=== PATIENT | female | born 1940 | race Caucasian/White ===

== ENCOUNTER → 2016-04-18 | Outpatient (CLI) | payer MEDICARE, OTHER ==
--- NOTE | 2016-04-18 16:09 | US ---
EXAM DESCRIPTION: US LOWER EXTREMITY ARTERIES BILATERAL CLINICAL HISTORY: PVD COMPARISON: None. TECHNIQUE: 2D grayscale and color arterial duplex Doppler evaluation of the bilateral lower extremities. FINDINGS: Mild scattered calcified plaque throughout the arterial vasculature is seen. There is biphasic flow from proximal to distal in both lower extremities. No elevated velocities or evidence of arterial occlusion is seen. IMPRESSION: Mild atherosclerotic disease of the bilateral lower extremities. No ultrasound evidence of flow-limiting stenosis or arterial occlusion. Electronically signed by: Caesar Orozco MD 04/18/2016 16:06
== END ==
LOC: US 15:02
PROVIDERS: ATTEND Obstetrics & Gynecology
DX: I73.9 Peripheral vascular disease, unspecified (principal); I70.203 Unspecified atherosclerosis of native arteries of extremities, bilateral legs

== ENCOUNTER → 2016-06-07 | Outpatient (CLI) | payer MEDICARE, OTHER ==
--- NOTE | 2016-06-07 12:37 | RAD ---
EXAM DESCRIPTION: Pelvis CLINICAL HISTORY: PAIN IN LEFT AND RIGHT HIP COMPARISON: March 12, 2011 IMPRESSION: Single AP supine view of the pelvis shows diffuse osteopenia of the osseous structures. No acute fracture, focal bone destruction, or joint dislocation seen. Moderate osteoarthritic changes of the hips are seen. Evaluation of the sacrum is limited by overlying bowel gas. Electronically signed by: Caesar Orozco MD 06/07/2016 12:36 PM COLLAR STAY FUSER TENDER
--- NOTE | 2016-06-07 12:38 | RAD ---
EXAM DESCRIPTION: Knee,Left Complete CLINICAL HISTORY: PAIN IN LEFT KNEE COMPARISON: None. IMPRESSION: 3 standing views of the left knee show severe narrowing of the lateral tibiofemoral compartment with sclerotic changes involving the weightbearing articular surface. This is consistent with severe advanced atherosclerotic disease. There is mild valgus deformity of the knee. Mild joint line osteophytes of the medial tibiofemoral compartment is seen. Large joint line osteophytes and mild joint space narrowing of the patellofemoral compartment is seen consistent with severe osteoarthritic changes. Soft tissues are unremarkable. No obvious acute fracture, focal bone destruction, or joint dislocation is seen. Electronically signed by: Ceasar Orozco MD 06/07/2016 12:37 PM FURNITURE DESIGNER
--- NOTE | 2016-06-07 12:40 | RAD ---
EXAM DESCRIPTION: Knee,Right Complete CLINICAL HISTORY: PAIN IN RIGHT KNEE COMPARISON: None. IMPRESSION: 3 standing views of the right knee show moderate to severe narrowing of the lateral tibiofemoral compartment with mild joint line osteophytes and sclerotic changes of the weightbearing articular surface consistent with severe osteoarthritic changes. Mild joint line osteophytes of the medial tibiofemoral compartment are seen. There is mild valgus deformity. Mild osteophytes of the patellofemoral compartment are seen consistent with mild osteoarthritic changes. There is a small suprapatellar joint effusion. No acute fracture or dislocation is identified. Electronically signed by: Caesar Orozco MD 06/07/2016 12:39 PM CSR TECHNICIAN
== END | disposition home or self-care (01) ==
LOC: RAD 02:06
PROVIDERS: ATTEND Orthopaedic Surgery
DX: M25.562 Pain in left knee (principal); M25.552 Pain in left hip

== ENCOUNTER → 2016-07-16 | Outpatient (CLI) | payer MEDICARE, OTHER ==
--- NOTE | 2016-07-17 09:18 | MAM ---
History: Well woman exam. Date of exam: 07/16/2016 Services provided: Bilateral full field digital screening mammography. CAD, the images were reviewed with R2 computer aided detection. FINDINGS: Glandular tissue is scattered glandular contour with increased mammographic density. Study is compared with 2012 exam. Stable medial right breast nodular density. No dominant mass, architectural distortion or clustered microcalcification. IMPRESSION: Benign exam Recommendation: Routine annual mammography BIRAD CATEGORY: 2 BENIGN Electronically signed by: Jenelle Beaver MD 07/17/2016 9:17 AM CDT
== END | disposition home or self-care (01) ==
LOC: MAMMO 13:52
PROVIDERS: ATTEND Obstetrics & Gynecology
DX: Z12.31 Encounter for screening mammogram for malignant neoplasm of breast (principal)

== ENCOUNTER → 2016-08-13 | Outpatient (CLI) | payer MEDICARE, OTHER | END | disposition home or self-care (01) | LOC: LAB.O 07:06 | PROVIDERS: ATTEND Internal Medicine Nephrology | DX: N18.4 Chronic kidney disease, stage 4 (severe) (principal) ==

== ENCOUNTER → 2016-12-13 | Outpatient (CLI) | payer MEDICARE, OTHER | LOC: LAB.O 14:12 | PROVIDERS: ATTEND Internal Medicine Nephrology | DX: N18.4 Chronic kidney disease, stage 4 (severe) (principal) ==

== ENCOUNTER → 2017-01-14 | Outpatient (CLI) | payer MEDICARE, OTHER | END | disposition home or self-care (01) | LOC: LAB.O 12:55 | PROVIDERS: ATTEND Internal Medicine Nephrology | DX: N18.4 Chronic kidney disease, stage 4 (severe) (principal) ==

== ENCOUNTER → 2017-03-22 | Outpatient (CLI) | payer MEDICARE, OTHER ==
--- NOTE | 2017-03-23 06:02 | RAD ---
Procedure: XR CHEST 2 VIEWS Exam Date: 03/22/2017 Ordering Provider: SALLY MENDOZA MD Clinical Indication: ENCOUNTER FOR OTHER PREPROCEDURAL EXAMINATION Comparison: 04/15/2014 Findings: Cardiomediastinal silhouette: Borderline cardiomegaly. Pulmonary vasculature : Unremarkable Aortic contour: Aortic calcification and tortuosity Focal lung consolidation: No focal lung consolidation. Pleural effusion: None Pneumothorax: None Bones and soft tissues: Nonacute Impression: 1. No acute abnormalities in the chest. Electronically signed by: Nate Garcia MD 03/23/2017 6:00 AM HARNESS RACING HANDICAPPER
== END ==
LOC: LAB.O 09:54
PROVIDERS: ATTEND Orthopaedic Surgery
DX: Z01.818 Encounter for other preprocedural examination (principal)

== ENCOUNTER 2017-04-17 05:47 | Inpatient (IN) | payer MEDICARE, OTHER ==
--- NOTE | 2017-04-11 13:02 | HP ---
CHIEF COMPLAINT: Right knee pain. HISTORY OF PRESENT ILLNESS: Nathalia is a 69-year-old female with a history of right knee pain that has been getting progressively worse over the course of the past several years. She has had conservative measures, however, has failed to gain relief. Because of her ongoing pain and failure of conservative measures, she has requested operative intervention. After discussing the risks , benefits and alternatives to operative intervention, the patient has given informed consent. PAST SURGICAL HISTORY: 1. Rotator cuff repair. 2. Laparotomy. 3. Cholecystectomy. 4. Oophorectomy. MEDICATIONS: 1. Atorvastatin. 2. Calcium. 3. Vitamins. 4. Glipizide. ALLERGIES: NO KNOWN DRUG ALLERGIES. CODE STATUS: DNR. IMMUNIZATIONS: Up to date. SOCIAL HISTORY: The patient does not drink, smoke or use any illicit drugs. FAMILY HISTORY: None pertinent to today's complaint. REVIEW OF SYSTEMS: Negative except as indicated in the History of Present Illness. PHYSICAL EXAMINATION: VITAL SIGNS: Blood pressure 154/81. Pulse 63. Height 4'11". Weight 141. MENTAL STATUS: The patient is awake, alert, and is able to give a good history and participate in the physical. The patient is oriented to person, place and time. SKIN: Normal tone and turgor. HEENT: Normocephalic, atraumatic. Pupils equal, round and reactive. Mucosal membranes are moist. NECK: Normal range of motion. No thyromegaly, no lymphadenopathy. CHEST: Normal respiratory excursion. CARDIAC: Regular rate and rhythm. No murmurs, rubs or gallops. MUSCULOSKELETAL: Bilateral upper extremities show full active range of motion without significant pain. She has intact sensation with no crepitus, no deformities and no malalignment. Strength is 5/5. They are warm and well perfused. The left lower extremity shows full range of motion of the hip. She has a valgus deformity to the knee, but no varus laxity. She has a little bit of opening with varus stress. There is no anterior or posterior laxity. She does have crepitus throughout the range of motion, but strength remains at 5/5. The right lower extremity shows no significant pain with range of motion of the hip. She is very tender in the knee with crepitus throughout her range of motion. She has no anterior/posterior laxity, but she does have a little bit of lateral laxity with varus stress. Sensation is intact. Strength is 5/5. She is very tender to mobilization of the patellofemoral joint. IMAGING: X-rays show severe arthritis on both knees. ASSESSMENT: 1. Arthritis. PLAN: The plan at this point is for total knee arthroplasty. We have discussed the risks, benefits, and alternatives to that and the patient has given informed consent. [facility][id number] [facility]
[2017-04-17] MEDS ORDERED: LACTATED RINGERS 1,000 ML ONE ×2 (05:48→05:58)
[2017-04-17] MEDS ORDERED: SODIUM CHLORIDE 0.9% 250ML 250 ML ONE ×2 (05:48→15:57)
[2017-04-17] MEDS ORDERED: VANCOMYCIN HCL INJ 1,000 MG VIAL IVPB ONE ×2 (05:49→15:58)
[2017-04-17] MEDS ORDERED: SODIUM CHL 0.9% 50ML MIN-BAG+ 50 ML IVPB ONE ×3 (05:49→19:55)
[2017-04-17] MEDS ORDERED: ceFAZolin SODIUM 1 GM VIAL ONE ×4 (05:50→19:56)
[2017-04-17] MEDS ORDERED: TRANEXAMIC ACID 1,000 MG/10 ML VIAL ONE ×2 (05:54)
[2017-04-17] MEDS ORDERED: SODIUM CHLORIDE 0.9% 100ML 100 ML IVPB ONE (05:54)
[2017-04-17] MEDS ORDERED: MORPHINE SULFATE *EPIDURAL* 0.5 MG/ML VIAL ONE (05:57)
[2017-04-17] MEDS ORDERED: fentaNYL CITRATE INJ 50 MCG/ML AMP ONE (05:57)
[2017-04-17] MEDS ORDERED: MIDAZOLAM INJ 2 MG/2 ML VIAL ONE (05:58)
[2017-04-17] MEDS ORDERED: LIDOCAINE 2 % GEL 5 ML TUBE TOP ONE (05:58)
[2017-04-17] MEDS: BUPIVACAINE 0.25% W/EPI 50 ML VIAL INJ ONE ×2 (07:54→08:44)
[2017-04-17] MEDS: VANCOMYCIN HCL INJ 1,000 MG VIAL IVPB ONE ×2 (07:55→08:40)
[2017-04-17] MEDS: ceFAZolin SODIUM 1 GM VIAL ONE ×2 (07:55→08:40)
[2017-04-17] MEDS ORDERED: ZOLPIDEM TARTRATE 5 MG TAB PO PRN (08:57)
[2017-04-17] MEDS ORDERED: NALOXONE HCL INJ 0.4 MG/ML VIAL IV PRN (08:57)
[2017-04-17] MEDS ORDERED: TRANEXAMIC ACID INJ 1,000 MG in SODIUM CHLORIDE 0.9% 100ML 100 ML IVPB ONE (08:57)
[2017-04-17] MEDS ORDERED: MORPHINE SULFATE INJ 10 MG/ML VIAL IV PRN (08:57)
[2017-04-17] MEDS ORDERED: MORPHINE SULFATE INJ 10 MG/ML VIAL IM PRN (08:57)
[2017-04-17] MEDS ORDERED: PROMETHAZINE HCL INJ 25 MG in SODIUM CHLORIDE 0.9% 50ML 50 ML IVPB PRN (08:57)
[2017-04-17] MEDS ORDERED: MAGNESIUM HYDROXIDE 30 ML UD PO PRN (08:57)
[2017-04-17] MEDS ORDERED: ALUMINUM & MAGNESIUM HYDROXIDE 30 ML UD PO PRN (08:57)
[2017-04-17] MEDS ORDERED: DEX 5% W/NACL 0.45% 1000ML 1,000 ML IVS PRN (08:57)
[2017-04-17] MEDS ORDERED: BISACODYL SUPPOSITORY 10 MG PR PRN (08:57)
[2017-04-17] MEDS ORDERED: BENZOCAINE-MENTH LOZ (CEPACOL) 1 EA LOZ MT PRN (08:57)
[2017-04-17] MEDS ORDERED: ACETAMINOPHEN 500 MG TAB PO PRN (08:57)
[2017-04-17] MEDS ORDERED: ACETAMINOPHEN 325 MG TAB PO PRN (08:57)
[2017-04-17] MEDS ORDERED: PROMETHAZINE HCL INJ 12.5 MG in SODIUM CHLORIDE 0.9% 50ML 50 ML IVPB PRN (08:57)
[2017-04-17] MEDS ORDERED: traMADol HCL 50 MG TAB PO PRN (08:57)
[2017-04-17] MEDS ORDERED: MORPHINE PCA 1 MG/ML 100ML 1 BAG in PREMIX BAG 1 BAG IVPB SCH (09:00)
[2017-04-17] MEDS ORDERED: MORPHINE PCA 1 MG/ML 100 ML BAG IVPB ONE (09:05)
[2017-04-17] MEDS ORDERED: SODIUM CHLORIDE 0.45% 1000ML 1,000 ML IVS PRN (09:52)
[2017-04-17] MEDS ORDERED: NEOSTIGMINE METHYLSULFATE 1 MG/ML ML IV ONE (10:00)
[2017-04-17] MEDS ORDERED: ATROPINE SULFATE INJ (MDV) 0.4 MG/ML 20ML VIAL IV ONE (10:00)
[2017-04-17] MEDS ORDERED: METOCLOPRAMIDE HCL INJ 10 MG/2 ML VIAL IV ONE (10:00)
[2017-04-17] MEDS ORDERED: LIDOCAINE 1% 10 ML VIAL INJ ONE (10:00)
[2017-04-17] MEDS ORDERED: PROPOFOL 200 MG/20 ML VIAL IV ONE (10:00)
[2017-04-17] MEDS ORDERED: DEXAMETHASONE INJ 10 MG/ML VIAL IV ONE (10:00)
[2017-04-17] MEDS ORDERED: ONDANSETRON INJ 4 MG/2 ML VIAL ONE (10:04)
[2017-04-17] MEDS ORDERED: METOCLOPRAMIDE HCL INJ 10 MG/2 ML VIAL ONE (10:04)
[2017-04-17] MEDS: IV SET AND CAP CHANGE INJ INJ SCH (11:30)
[2017-04-17] MEDS: ONDANSETRON INJ 4 MG/2 ML VIAL IV PRN ×2 (12:19→18:31)
--- NOTE | 2017-04-17 13:19 | RAD ---
EXAM DESCRIPTION: Knee,Right 2 or More Views CLINICAL HISTORY: TKA COMPARISON: June 07, 2016 IMPRESSION: 2 views of the right knee show interval postsurgical changes from total knee arthroplasty with cement fixation of the tibial and femoral components. Small amount of air in the suprapatellar bursa is seen related to recent surgery. No complicating features are identified. Electronically signed by: Caesar Orozco MD 04/17/2017 1:18 PM [facility]
--- NOTE | 2017-04-17 13:32 | CONS ---
SUPERVISING PHYSICIAN: Ken Rogers MD DATE OF CONSULTATION: 04/17/17 REASON FOR CONSULTATION: Medical management. HISTORY OF PRESENT ILLNESS: This is a 76-year-old female who underwent elective right total knee arthroplasty today. She has had right knee pain which has progressively gotten worse over the past year or so and has failed conservative measures. There are no reported intraoperative complications. The patient was brought the Medical/Surgical Unit postoperatively where she is still drowsy from anesthesia, but awakens and answers appropriately. So far, vital signs are acceptable. Oxygen saturations are acceptable as well. When she awakens, she does not complain of any significant knee pain at this time. PAST MEDICAL HISTORY: 1. Type 2 diabetes mellitus. 2. Chronic kidney disease. 3. Uterine cancer. 4. Hyperlipidemia. 5. Cerebrovascular accident. 6. MRSA infections on her face in the past. PAST SURGICAL HISTORY: 1. Appendectomy. 2. Cholecystectomy. 3. Hysterectomy. 4. Left rotator cuff surgery. MEDICATIONS: 1. Atorvastatin 10 mg q.h.s. 2. Calcium plus D 1 tab b.i.d. 3. Vitamin D3 1000 units b.i.d. 4. Clobetasol propionate 0.05% ointment every other day. 5. Glipizide 2.5 mg before meals b.i.d. 6. Miglitol 75 mg p.o. daily. ALLERGIES: NO KNOWN DRUG ALLERGIES. FAMILY HISTORY: Noncontributory. SOCIAL HISTORY: The patient is . She is a nonsmoker, nondistended, no illicit drugs. PRIMARY CARE PHYSICIAN: Reji Dye MD REVIEW OF SYSTEMS: Unable to be fully performed due to the fact the patient is still a bit sedated. PHYSICAL EXAMINATION: VITAL SIGNS: Blood pressure 159/77. Heart rate 94. Respiratory rate 18. Temperature 97.8. Oxygen saturation 97%. GENERAL: Ms. Snyder is a 76-year-old female who is in no active distress currently. HEENT: Normocephalic, atraumatic. Pupils are equal and reactive. No nasal drainage. Throat with slightly dry buccal mucosa. NECK: Supple. Midline trachea. No jugular venous distention. CHEST: Symmetrical with equal rise and fall of the chest with inspiration and expiration. Lung sounds are clear to auscultation bilaterally. CARDIOVASCULAR: Regular rate and rhythm. Normal S1, S2. ABDOMEN: Soft, obese. Positive bowel sounds. No tenderness to palpation. GENITOURINARY: Deferred. EXTREMITIES: Lower extremities with a noted brace on the right lower extremity. No significant edema. Peripheral pulses are 2+. Capillary refill less than 2 seconds. NEUROLOGIC: The patient is drowsy, but awakens and follows commands. Moves all extremities. There are no focal deficits. LABORATORY: Labs and films were done preoperatively in March and she is noted to have some chronic kidney disease on that. ASSESSMENT: 1. Right knee osteoarthritis with failed conservative measures status post right total knee arthroplasty. 2. Type 2 diabetes mellitus. 3. Chronic kidney disease. 4. Hypertension. PLAN: 1. At this time, we are going to utilize postoperative orders by Dr. Shultz in regard to pain control as well as physical therapy for her right knee surgery recovery. 2. I am going to resume her home medications. This will include her diabetes medications. If we start to notice that her glucoses become uncontrolled, we can start utilizing a sliding scale. 3. I will recheck her labs in the morning since the other ones were done about a month ago. We will ensure that her hemoglobin is stable as well as check creatinine to ensure it is around her baseline. 4. She is not really on any antihypertensive medications. I will monitor this and if we need to add something for her blood, we can certainly do that. 5. DVT prophylaxis with Lovenox has already been ordered. #[id number] [facility]
[2017-04-17] MEDS: glipiZIDE EXTENDED REL (XL) 2.5 MG TAB PO SCH (16:27)
[2017-04-17] MEDS: ceFAZolin SODIUM 1 GM in SODIUM CHL 0.9% 50ML MIN-BAG+ 50 ML IVPB SCH ×2 (16:27→23:48)
[2017-04-17] MEDS: CELECOXIB 100 MG CAP PO SCH (16:27)
[2017-04-17] MEDS: VANCOMYCIN HCL INJ 1,000 MG in SODIUM CHLORIDE 0.9% 250ML 250 ML IVPB SCH (18:05)
[2017-04-17] MEDS ORDERED: GLUCAGON INJ 1 MG VIAL SUBCU PRN (18:52)
[2017-04-17] MEDS ORDERED: DEXTROSE 50% 25 GM/50 ML SYG IV PRN (18:52)
[2017-04-17] MEDS: ATORVASTATIN 10 MG TAB PO SCH ×2 (20:03→22:05)
[2017-04-17] MEDS: CHOLECALCIFEROL 2,000 IU TAB PO SCH ×2 (20:03→22:06)
[2017-04-17] MEDS: DOCUSATE CALCIUM 240 MG CAP PO SCH ×2 (20:03→22:06)
[2017-04-17] MEDS: CLOBETASOL PROPIONATE 0.05% EX SCH ×2 (20:03→20:42)
[2017-04-17] MEDS: CALCIUM CARBONATE-VITAMIN D 500 MG TAB PO SCH ×2 (20:03→22:05)
[2017-04-17] MEDS ORDERED: PROMETHAZINE HCL INJ 25 MG/ML VIAL ONE (20:15)
[2017-04-17] MEDS ORDERED: SODIUM CHLORIDE 0.9% 50ML 50 ML ONE (20:15)
[2017-04-17] MEDS ORDERED: CALCIUM CITRATE VITAMIN D PO SCH (21:00)
[2017-04-17] MEDS ORDERED: [UNRECOGNIZED DRUG - OTHER] PO SCH (21:00)
[2017-04-17] MEDS: ENOXAPARIN SODIUM 30 MG/0.3 ML SYG SUBCU SCH (21:16)
[2017-04-17] MEDS: INSULIN LISPRO 100 UNITS/ML PEN SUBCU SCH (23:08)
[2017-04-18] MEDS ORDERED: VANCOMYCIN HCL INJ 1,000 MG VIAL IVPB ONE (05:19)
[2017-04-18] MEDS ORDERED: SODIUM CHLORIDE 0.9% 250ML 250 ML ONE (05:19)
[2017-04-18] MEDS: VANCOMYCIN HCL INJ 1,000 MG in SODIUM CHLORIDE 0.9% 250ML 250 ML IVPB SCH (05:32)
[2017-04-18] MEDS: glipiZIDE EXTENDED REL (XL) 2.5 MG TAB PO SCH ×2 (06:45→17:36)
[2017-04-18] MEDS: MIGLITOL PO SCH (06:45)
[2017-04-18] MEDS: INSULIN LISPRO 100 UNITS/ML PEN SUBCU SCH ×4 (07:26→21:16)
[2017-04-18] MEDS: CELECOXIB 100 MG CAP PO SCH ×2 (08:11→17:35)
--- NOTE | 2017-04-18 08:27 | PN ---
DATE: 04/17/17 POSTOPERATIVE CHECK SUBJECTIVE: At this point, Ms. Snyder has a little bit of pain in the hip, but otherwise has no complaints. Pain is well controlled. OBJECTIVE: Afebrile. Vital signs stable. Dressing is clean, dry and intact. ASSESSMENT: Status post total knee arthroplasty. PLAN: She will begin her CPM and start weight-bearing as tolerated tomorrow. [facility][id number] [facility]
--- NOTE | 2017-04-18 08:43 | OP ---
DATE OF PROCEDURE: 04/17/17 PREOPERATIVE DIAGNOSIS: 1. Osteoarthritis of the right knee. POSTOPERATIVE DIAGNOSIS: 1. Osteoarthritis of the right knee. PROCEDURE: 1. Right total knee arthroplasty. SURGEON: Kemar Shultz MD. DERRICK BUILDER: Enrique Vyas CST, SA-C. ANESTHESIA: General. COMPLICATIONS: None. FINDINGS: Severe arthritis with valgus deformity. INDICATION: Ms. Snyder has a history of severe pain in the knee for which she has undergone conservative measures. Unfortunately, she has failed to gain relief. Because of the failure of relief, she has requested operative intervention. After discussing the risks, benefits and alternatives to that, the patient has given informed consent for total knee arthroplasty. PROCEDURE: The patient was brought to the Operating Room and placed in supine position. General anesthesia was induced and the patient's leg was sterilely prepped and draped. Following prepping and draping, the distal femur was exposed and using an intramedullary guide, the distal femoral cut was made. The appropriate sized cutting block was measured, pinned into place, and the anterior, posterior, and chamfer cuts were made. The ACL was transected and the tibia was subluxed. Both the medial and lateral menisci were removed. An intramedullary guide was used to make the proximal tibial cut. The appropriate sized base plate was placed and a trial polyethylene was placed. The trial femur was placed, the knee was reduced, and the knee was taken through a range of motion. The knee was stable in anterior, posterior, varus and valgus stress. The patella tracked anatomically without evidence of subluxation or dislocation. After trialing, the trial components were removed and the bony surfaces were thoroughly irrigated with saline. Following irrigation, the surfaces were dried and the final components were cemented into place. The excess cement was removed and the remaining cement was allowed to cure. The knee was again taken through a range of motion to confirm stability. The wound was then irrigated with saline and closure was performed using PDS to approximate the arthrotomy followed by closure of the subcutaneous tissues with a combination of running and interrupted Monocryl sutures. Sterile dressing was placed. The patient was awoken from anesthesia and taken to Recovery. POSTOPERATIVE INSTRUCTIONS: The patient will be weight-bearing as tolerated on postoperative day 1. COMPONENTS: vocaltap Triathlon knee, size 2 femur, size 2 tibia, 11 mm insert. #[id number] [facility]
[2017-04-18] MEDS ORDERED: SODIUM CHL 0.9% 50ML MIN-BAG+ 50 ML IVPB ONE (09:14)
[2017-04-18] MEDS ORDERED: ceFAZolin SODIUM 1 GM VIAL ONE (09:15)
[2017-04-18] MEDS: ceFAZolin SODIUM 1 GM in SODIUM CHL 0.9% 50ML MIN-BAG+ 50 ML IVPB SCH (09:30)
[2017-04-18] MEDS: ENOXAPARIN SODIUM 30 MG/0.3 ML SYG SUBCU SCH ×2 (09:31→21:17)
[2017-04-18] MEDS: MAGNESIUM OXIDE 400 MG TAB PO SCH (09:31)
[2017-04-18] MEDS: CALCIUM CARBONATE-VITAMIN D 500 MG TAB PO SCH ×2 (09:31→20:49)
--- NOTE | 2017-04-18 19:08 | PCM.CORE ---
Physician DVT/VTE - Nurse DVT Assessment & Total Each Risk Factor Represents 3 Points: Age over 75 years Each Risk Factor Represents 1 Point: Hx Major Surgery <1month Each Risk Factor is 1 Point: Obesity (BMI >25) DVT Assessment Score: 5 - 5 or more Very High Risk Treatments: Early Ambulation *, Sequential Compression Device Pharmacological: Enoxaparin 30mg SQ BID
[2017-04-18] MEDS: CHOLECALCIFEROL 2,000 IU TAB PO SCH (20:48)
[2017-04-18] MEDS: DOCUSATE CALCIUM 240 MG CAP PO SCH (20:49)
[2017-04-18] MEDS: ATORVASTATIN 10 MG TAB PO SCH (20:49)
--- NOTE | 2017-04-18 22:05 | PN ---
DATE: 04/18/17 SUPERVISING PHYSICIAN: Ken Rogers M.D. SUBJECTIVE: The patient is doing well. She has been utilizing her CPM and she has been up with Physical Therapy. She has had good pain control. She has had no nausea or vomiting. OBJECTIVE: VITAL SIGNS: Temperature 98.2, pulse 74, blood pressure 136/72, respirations 18, satting 94% on nasal cannula at 3 liters at rest. I's and O's show a positive balance of 200 with 600 in, 400 out. Weight is 66.6 kg. CHEST : Lungs are clear to auscultation, just slightly diminished towards the bases. HEART: Regular rate and rhythm. ABDOMEN: Soft, non-tender. Positive bowel sounds. EXTREMITIES: Right knee has a bulky dressing in place, Ronnie bandage. Distally pulses are strong. Capillary refill is brisk. NEUROLOGIC: She is alert and oriented times three. LABORATORY: Postoperative H&H shows hemoglobin 12.6, hematocrit 38.4. Chemistries show normal electrolytes. BUN 39, creatinine 2.0 which is her baseline creatinine level. Blood sugars have been between 79 and 234. MICROBIOLOGY: There is no growth of MRSA after 24 hours on the MRSA plate. RADIOLOGY: There are no additional radiographic studies. ASSESSMENT: 1. Postoperative day 1 for a total right knee arthroplasty having failed to respond to conservative outpatient treatment measures for right knee osteoarthritis, surgery performed by Dr. Kemar Shultz. 2. Type 2 diabetes mellitus poorly controlled. 3. Chronic kidney disease at baseline creatinine levels. 4. Hypertension. PLAN: Will continue to follow the patient as she progressed through her physical therapy efforts. Will monitor her blood sugars as well as her blood pressure and adjust accordingly. She has shown stable creatinine based off previous labs. We will not repeat laboratory studies in the morning as well as hemoglobin and hematocrit are stable. So far her blood pressure has been fairly well controlled. Again, will continue to monitor this and treat appropriately. She will continue on DVT prophylaxis. Will anticipate discharge in the next 24 to 48 hours with discharge planning still in place with question of either doing Swing Bed versus going to [facility] to continue rehabilitation. Until discharge, will continue to monitor and treat appropriately. #[id number] [facility]
[2017-04-19] MEDS: CYCLOBENZAPRINE HCL 10 MG TAB PO PRN (04:39)
[2017-04-19] MEDS: HYDROcodone 5MG/APAP 325MG 1 EA TAB PO PRN ×3 (04:39→15:03)
[2017-04-19] MEDS: MIGLITOL PO SCH (06:55)
[2017-04-19] MEDS: glipiZIDE EXTENDED REL (XL) 2.5 MG TAB PO SCH ×2 (06:55→16:39)
[2017-04-19] MEDS: INSULIN LISPRO 100 UNITS/ML PEN SUBCU SCH ×4 (07:43→21:09)
[2017-04-19] MEDS: CELECOXIB 100 MG CAP PO SCH ×2 (08:04→16:40)
[2017-04-19] MEDS: ONDANSETRON INJ 4 MG/2 ML VIAL IV PRN (08:16)
--- NOTE | 2017-04-19 08:50 | PN ---
DATE: 04/18/17 SUBJECTIVE: Ms. Snyder is doing well other than a little bit of nausea. OBJECTIVE: Afebrile. Vital signs stable. Dressing is clean, dry and intact. ASSESSMENT: Status post total knee arthroplasty. PLAN: She will continue with her CPM. We will begin weight-bearing as tolerated today. #[id number] [facility]
--- NOTE | 2017-04-19 08:54 | PN ---
DATE: 04/19/17 SUBJECTIVE: Ms. Snyder is doing well. OBJECTIVE: Afebrile. Vital signs stable. Wound is clean. There are no signs or symptoms of infection. ASSESSMENT: Status post total knee arthroplasty. PLAN: She will continue with weight-bearing as tolerated. She will continue to utilize the CPM as well. #[id number] [facility]
[2017-04-19] MEDS: ENOXAPARIN SODIUM 30 MG/0.3 ML SYG SUBCU SCH ×2 (09:05→21:09)
[2017-04-19] MEDS: MAGNESIUM OXIDE 400 MG TAB PO SCH (09:05)
[2017-04-19] MEDS: CALCIUM CARBONATE-VITAMIN D 500 MG TAB PO SCH ×2 (09:05→21:08)
[2017-04-19] MEDS: SODIUM CHLORIDE 0.9% (FLUSH) 10 ML SYG IV SCH ×2 (09:06→21:09)
[2017-04-19] MEDS ORDERED: METOCLOPRAMIDE HCL INJ 10 MG/2 ML VIAL IV ONE (13:12)
[2017-04-19] MEDS ORDERED: PANTOPRAZOLE INJECTION 40 MG in SODIUM CHLORIDE 0.9% 100ML 100 ML IVPB ONE (13:12)
[2017-04-19] MEDS ORDERED: SODIUM CHL 0.9% 100ML MINI-BAG 100 ML IVPB ONE (13:18)
[2017-04-19] MEDS ORDERED: PANTOPRAZOLE SODIUM IV 40 MG VIAL ONE (13:18)
[2017-04-19] MEDS: POLYETHYLENE GLYCOL 3350 17 GM PCKT PO SCH (13:26)
[2017-04-19] MEDS: SODIUM CHLORIDE 0.9% (FLUSH) 10 ML SYG IV PRN (13:28)
[2017-04-19] MEDS: METOCLOPRAMIDE HCL 5 MG TAB PO SCH ×2 (16:40→21:08)
[2017-04-19] MEDS: CHOLECALCIFEROL 2,000 IU TAB PO SCH (21:08)
[2017-04-19] MEDS: DOCUSATE CALCIUM 240 MG CAP PO SCH (21:08)
[2017-04-19] MEDS: ATORVASTATIN 10 MG TAB PO SCH (21:08)
[2017-04-19] MEDS: CLOBETASOL PROPIONATE 0.05% EX SCH (21:09)
[2017-04-20] MEDS: HYDROcodone 5MG/APAP 325MG 1 EA TAB PO PRN ×3 (04:22→21:10)
[2017-04-20] MEDS: METOCLOPRAMIDE HCL 5 MG TAB PO SCH ×4 (06:38→21:11)
[2017-04-20] MEDS: glipiZIDE EXTENDED REL (XL) 2.5 MG TAB PO SCH ×2 (06:38→16:04)
[2017-04-20] MEDS: MIGLITOL PO SCH (06:39)
[2017-04-20] MEDS: INSULIN LISPRO 100 UNITS/ML PEN SUBCU SCH ×4 (08:16→21:11)
[2017-04-20] MEDS: CELECOXIB 100 MG CAP PO SCH ×3 (08:22→16:04)
[2017-04-20] MEDS: ONDANSETRON INJ 4 MG/2 ML VIAL IV PRN (09:36)
[2017-04-20] MEDS: MAGNESIUM OXIDE 400 MG TAB PO SCH (09:41)
[2017-04-20] MEDS: CALCIUM CARBONATE-VITAMIN D 500 MG TAB PO SCH ×2 (09:41→21:10)
[2017-04-20] MEDS: IV SET AND CAP CHANGE INJ INJ SCH (09:42)
[2017-04-20] MEDS: POLYETHYLENE GLYCOL 3350 17 GM PCKT PO SCH (09:42)
[2017-04-20] MEDS: SODIUM CHLORIDE 0.9% (FLUSH) 10 ML SYG IV SCH ×2 (09:42→21:11)
[2017-04-20] MEDS: ENOXAPARIN SODIUM 30 MG/0.3 ML SYG SUBCU SCH ×2 (09:43→21:11)
--- NOTE | 2017-04-20 10:52 | PN ---
DATE: 04/19/17 SUPERVISING PHYSICIAN: Ken Rogers M.D. SUBJECTIVE: The patient is doing pretty well with her physical therapy. She has had some issues with nausea and some constipation. I discussed with her possibly she has a little gastroparesis going on from her poorly controlled diabetes and will try some Reglan a.c., h.s. in efforts to facilitate her dietary supplements and prevent any further nausea and help with assisting and continuing physical therapy. OBJECTIVE: VITAL SIGNS: She remains afebrile, T-max temperature 98.2, pulse 82, blood pressure 120/70, respirations 18, saturation 99% on nasal cannula at 2 liters. I's and O's show a negative balance of 400 with 900 in, 1300 out. She has had no bowel movements as of today. Weight is 66.6 kg. CHEST: Lungs are clear to auscultation. HEART: Regular rate and rhythm. ABDOMEN: Obese, soft, non-tender. Positive bowel sounds. EXTREMITIES: No cyanosis, clubbing, or edema. Right knee has a dressing in place that is clean and dry. There are no signs of infection. Distally pulses are strong. Capillary refill is brisk. NEUROLOGIC: She is alert and oriented times three. LABORATORY: No additional laboratory other than blood sugars which have been running from 79 to 168. RADIOLOGY: There are no additional radiographic studies. ASSESSMENT: 1. Postoperative day #2 for a total right knee arthroplasty having failed to respond to conservative outpatient treatment measures for right knee osteoarthritis, surgery performed by Dr. Kemar Shultz. 2. Type 2 diabetes mellitus poorly controlled. 3. Gastroparesis likely sedimentation to poorly controlled diabetes. 4. Nausea and vomiting associated with some gastroparesis. 5. Chronic kidney disease at baseline creatinine levels. 6. Hypertension. PLAN: Will continue to follow her as to continues to progress her physical therapy efforts. Her blood sugars are still controlled with sliding scale. She has again been having the nausea and is refusing to eat a lot. I have encouraged her to have a good oral intake and will discuss utilizing some Reglan in efforts to prevent any further nausea with close monitoring. Will anticipate discharge either tomorrow or Saturday with continued physical therapy through [facility]. Until discharge, we will continue to monitor closely and treat appropriately. [facility][id number] [facility]
[2017-04-20] MEDS: BISACODYL SUPPOSITORY 10 MG PR ONE ×2 (17:55→18:08)
--- NOTE | 2017-04-20 18:46 | PN ---
DATE: 04/20/17 SUPERVISING PHYSICIAN: Ken Rogers M.D. SUBJECTIVE: The patient is lying in the hospital bed. Complains of nausea but no vomiting. She also complains of constipation. Denies any shortness of breath, chest pain, cough or wheezing. OBJECTIVE: VITAL SIGNS: She is afebrile, heart rate 89. It has been as high as 109. Blood pressure 123/76, respiratory rate 18, O2 sat is 97% on 2 liters nasal cannula. RESPIRATORY: Essentially clear to auscultation bilaterally. CARDIAC: Regular rate and rhythm. ABDOMEN: Soft, nondistended, non-tender. Bowel sounds are positive. EXTREMITIES: Right knee has a dressing in place that is clean and dry. There is some slight edema to the right knee. Her bilateral pedal pulses are +2. NEUROLOGIC: She is awake, alert and oriented times three. LABORATORY: There are no labs or films to report at this time. ASSESSMENT: 1. Postoperative day #2 for a total right knee arthroplasty having failed to respond to conservative outpatient treatment for right knee osteoarthritis, surgery performed by Dr. Kemar Shultz, orthopedic surgeon. 2. Diabetes mellitus type 2 poorly controlled. 3. Gastroparesis most likely sedimentation to poorly controlled diabetes. 4. Nausea most likely associated with gastroparesis. 5. Chronic kidney disease at baseline creatinine levels. 6. Hypertension. PLAN: We will continue present supportive care. It has been reported that her oxygen saturations at rest will sometimes drop to the mid 80s and the reports that she does have sleep apnea-type symptoms at night at home. Tonight I will initiate BiPAP and we can titrate her to CPAP. She will need a sleep study on discharge and maybe we can get that set up before she leaves the hospital. She has also not had a bowel movement so I will order a Dulcolax suppository for this evening. Hopefully we can get that moving. I will continue to monitor her nausea as she has had no episodes of vomiting and she is tolerating her medications as well as food without any difficulty. She will continue with her strengthening and conditioning with Physical Therapy. I have encouraged good pulmonary hygiene. Will anticipate discharge on Saturday or so. We will continue to monitor the patient closely and follow as needed. Dr. Rogers is the collaborating physician available for consultation. #[id number] [facility]
[2017-04-20] MEDS ORDERED: MAGNESIUM HYDROXIDE 30 ML UD PO ONE (21:00)
[2017-04-20] MEDS ORDERED: BISACODYL SUPPOSITORY 10 MG PR ONE (21:00)
[2017-04-20] MEDS: CHOLECALCIFEROL 2,000 IU TAB PO SCH (21:10)
[2017-04-20] MEDS: ATORVASTATIN 10 MG TAB PO SCH (21:11)
[2017-04-20] MEDS: TEMAZEPAM 15 MG CAP PO PRN (21:11)
[2017-04-20] MEDS: DOCUSATE CALCIUM 240 MG CAP PO SCH (21:11)
[2017-04-21] MEDS: SODIUM CHLORIDE 0.9% (FLUSH) 10 ML SYG IV PRN (05:49)
[2017-04-21] MEDS: ONDANSETRON INJ 4 MG/2 ML VIAL IV PRN (05:50)
[2017-04-21] MEDS: MIGLITOL PO SCH (06:00)
[2017-04-21] MEDS: glipiZIDE EXTENDED REL (XL) 2.5 MG TAB PO SCH ×2 (06:30→16:32)
[2017-04-21] MEDS: METOCLOPRAMIDE HCL 5 MG TAB PO SCH ×4 (06:30→21:57)
[2017-04-21] MEDS: CELECOXIB 100 MG CAP PO SCH ×2 (07:58→17:49)
[2017-04-21] MEDS: INSULIN LISPRO 100 UNITS/ML PEN SUBCU SCH ×4 (08:45→21:56)
[2017-04-21] MEDS: CALCIUM CARBONATE-VITAMIN D 500 MG TAB PO SCH ×2 (09:15→21:57)
[2017-04-21] MEDS: ENOXAPARIN SODIUM 30 MG/0.3 ML SYG SUBCU SCH ×2 (09:15→21:56)
[2017-04-21] MEDS: SODIUM CHLORIDE 0.9% (FLUSH) 10 ML SYG IV SCH ×2 (09:15→21:59)
[2017-04-21] MEDS: POLYETHYLENE GLYCOL 3350 17 GM PCKT PO SCH (09:15)
[2017-04-21] MEDS: MAGNESIUM OXIDE 400 MG TAB PO SCH (09:15)
--- NOTE | 2017-04-21 16:27 | PN ---
DATE: 04/21/17 SUPERVISING PHYSICIAN: Ken Rogers M.D. SUBJECTIVE: The patient is sitting up on the side of her bed. Complains of nausea and just feeling awful. When questioned about her activity and vomiting , she says she has participated in her physical therapy without any problems and she has had no vomiting. She also said she will not wear that mask at night in regards to the BiPAP at night and felt she needed more help with her physical therapy and strengthening. OBJECTIVE: VITAL SIGNS: She is afebrile, heart rate 102, blood pressure 146/81 , respiratory rate 18, O2 sat 94% on 2 liters nasal cannula. RESPIRATORY: Essentially clear to auscultation bilaterally. CARDIAC: Regular rate and rhythm. ABDOMEN: Soft, nondistended, non-tender. Bowel sounds are positive. EXTREMITIES: Right knee has a dressing in place that is clean and dry. Her bilateral pedal pulses are palpable +2. NEUROLOGIC: She is awake, alert and oriented times three. LABORATORY: There are no labs or films to report at this time. ASSESSMENT: 1. Postoperative day #3 for a total right knee arthroplasty having failed to respond to conservative outpatient treatment for right knee osteoarthritis, surgery performed by Dr. Kemar Shultz, orthopedic surgeon. 2. Diabetes mellitus type 2 poorly controlled. 3. Gastroparesis most likely due to poorly controlled diabetes. 4. Nausea most likely associated with gastroparesis. 5. Chronic kidney disease at baseline creatinine levels. 6. Hypertension. PLAN: We will continue present supportive care. The patient did not tolerate the BiPAP overnight and most likely has had sleep apnea for many years. I have urged her to get a sleep study after she is discharged and hopefully we can set that up before she leaves or have Dr. Dye set it up for her. At this point, no one has seen any emesis after she complains of nausea and she is tolerating her food without problems, but she may need several days of Swing Bed admission to continue her physical therapy for strengthening and conditioning. She can be evaluated for that tomorrow with Physical Therapy and Dr. Shultz. Otherwise at this point we will continue to monitor closely and follow as needed. Dr. Rogers is the collaborating physician available for consultation. #[id number] [facility]
[2017-04-21] MEDS: HYDROcodone 5MG/APAP 325MG 1 EA TAB PO PRN (21:56)
[2017-04-21] MEDS: TEMAZEPAM 15 MG CAP PO PRN (21:56)
[2017-04-21] MEDS: ATORVASTATIN 10 MG TAB PO SCH (21:57)
[2017-04-21] MEDS: DOCUSATE CALCIUM 240 MG CAP PO SCH (21:57)
[2017-04-21] MEDS: CHOLECALCIFEROL 2,000 IU TAB PO SCH (21:57)
[2017-04-22] MEDS: METOCLOPRAMIDE HCL 5 MG TAB PO SCH ×2 (06:35→11:38)
[2017-04-22] MEDS: glipiZIDE EXTENDED REL (XL) 2.5 MG TAB PO SCH (06:35)
[2017-04-22] MEDS: INSULIN LISPRO 100 UNITS/ML PEN SUBCU SCH ×2 (07:43→11:38)
[2017-04-22] MEDS: CELECOXIB 100 MG CAP PO SCH (08:18)
[2017-04-22] MEDS: MAGNESIUM OXIDE 400 MG TAB PO SCH (08:18)
[2017-04-22] MEDS: CALCIUM CARBONATE-VITAMIN D 500 MG TAB PO SCH (08:18)
[2017-04-22] MEDS: ENOXAPARIN SODIUM 30 MG/0.3 ML SYG SUBCU SCH (08:18)
[2017-04-22] MEDS: SODIUM CHLORIDE 0.9% (FLUSH) 10 ML SYG IV SCH (08:18)
[2017-04-22] MEDS: POLYETHYLENE GLYCOL 3350 17 GM PCKT PO SCH (08:18)
[2017-04-22] MEDS: MIGLITOL PO SCH (08:19)
[2017-04-22] MEDS ORDERED: HYDROcodone 5MG/APAP 325MG 1 EA TAB PO PRN (09:17)
--- NOTE | 2017-04-22 13:03 | RAD ---
EXAM DESCRIPTION: Abdomen, 2 views CLINICAL HISTORY: Nausea and vomiting FINDINGS/ IMPRESSION: Scattered large and small intestinal bowel gas. A few short segment air-fluid levels. No dilation to diagnose small bowel or large intestinal obstruction. No pneumatosis or free intraperitoneal air No organomegaly or obvious abdominal mass lesion Cardiomegaly with tortuous aorta Electronically signed by: Ken Gamino MD 04/22/2017 1:01 PM [employer]
[2017-04-22] MEDS: CYCLOBENZAPRINE HCL 10 MG TAB PO PRN (13:17)
[2017-04-22 14:34] VITALS: BP 129/83; TEMP 96.2; O2SAT 96
--- NOTE | 2017-04-23 11:04 | DS ---
SUPERVISING PHYSICIAN: Matt Ahumada MD DISCHARGE DIAGNOSIS: 1. Postoperative day #4 for a total right knee arthroplasty having failed to respond to conservative outpatient treatment for right knee osteoarthritis, surgery performed by Dr. Kemar Shultz, orthopedic surgeon. 2. Diabetes mellitus, type 2, poorly controlled. 3. Gastroparesis, most likely due to poorly controlled diabetes. 4. Nausea, most likely associated with gastroparesis. 5. Chronic kidney disease at baseline creatinine levels. 6. Hypertension. REASON FOR HOSPITALIZATION: Ms. Snyder is a 76-year-old female patient who underwent elective right total knee arthroplasty on 04/17/17. She had had right knee pain which had progressively gotten worse over the past year or so and has failed conservative measures. She was followed postoperatively. LABORATORY: CBC on 04/18/17 showed hemoglobin 12.6, hematocrit 38.4. Discharge hemoglobin 13 and hematocrit 39. Chemistries showed normal electrolytes on 04/18/17 with BUN 39, creatinine 2.03. Blood sugars have been between 53 and 173. HOSPITAL COURSE: Ms. Snyder was admitted as noted in history of present illness on 04/17/17 for elective total knee arthroplasty. She tolerated surgery well and had no complications postoperatively. She progressed through her physical therapy. She did have some issues with some nausea and was slow to tolerate a diet, however, this resolved after being given some Reglan and Phenergan. She had an abdominal x-ray on the morning of discharge which showed no evidence of small bowel or large intestinal obstruction. She did have some issues with some constipation, however, this resolved with some stool softeners and laxative as well as enema. It was felt on the morning of discharge that she was stable enough and had progressed to meet her goals with physical therapy and was able to be discharged to continue with physical therapy in the outpatient setting. PLAN: Ms. Snyder was discharged on 04/22/17 with instructions to followup with Dr. Shultz as scheduled on 05/03/17 at 1445. She was also to followup with Dr. Dey on the same day or earlier as needed. She was to continue her rehab program through [facility] and encourage good nutritional intake with fluids to prevent weakness and dehydration. She was to resume her home medications as previous to surgery. She was to take new medications as directed and return to the hospital or call Dr. Shultz's office should she have any concerning symptoms or questions. Diet at discharge was diabetic diet as tolerated. Activity was as tolerated per physical therapy and to walk with a walker only. She was to have no tub baths, showers only. Wound management was as per Dr. Shultz's postoperative wound care. Home medications were resumed as previous. NEW MEDICATIONS AT DISCHARGE: 1. [place] 5/325 1 q.4h. as needed for pain, written by Dr. Shultz. 2. MiraLAX 17 grams daily to prevent constipation. 3. Xarelto 10 mg daily, #7. Condition on discharge was stable and improved. #[id number] [facility]
--- NOTE | 2017-04-24 08:48 | PN ---
DATE: 04/20/17 SUBJECTIVE: Ms. Snyder is doing well and has excellent pain control. OBJECTIVE: Afebrile. Vital signs stable. Wound is clean. There are no signs or symptoms of infection. ASSESSMENT: Status post total knee arthroplasty. PLAN: At this point, we are going to continue with weight-bearing as tolerated and increase her CPM as tolerated. We will continue with that until she meets all goals and consider placement with Swing Bed as needed. #[id number] [facility]
--- NOTE | 2017-04-24 13:51 | OP ---
DATE OF PROCEDURE: 04/17/17 PREOPERATIVE DIAGNOSIS: 1. Osteoarthritis. POSTOPERATIVE DIAGNOSIS: 1. Osteoarthritis. PROCEDURE: 1. Total knee arthroplasty. SURGEON: Kemar Shultz MD. MATERIAL PREPARATION WORKER: Enrique Vyas CST, SA[employer]. ANESTHESIA: General. COMPLICATIONS: None. FINDINGS: Severe arthritis of the knee. INDICATION: Ms. Snyder has a long history of pain in the knee that has been causing her discomfort and problems with her daily activities. Because fo the pain and the failure or conservative measures, she has requested operative intervention. After discussing the risks, benefits and alternatives to that, the patient has given informed consent for total knee arthroplasty. PROCEDURE: The patient was brought to the Operating Room and placed in supine position. General anesthesia was induced and the patient's leg was sterilely prepped and draped. Following prepping and draping, the distal femur was exposed and using an intramedullary guide, the distal femoral cut was made. The appropriate sized cutting block was measured, pinned into place, and the anterior, posterior, and chamfer cuts were made. The ACL was transected and the tibia was subluxed. Both the medial and lateral menisci were removed. An intramedullary guide was used to make the proximal tibial cut. The appropriate sized base plate was placed and a trial polyethylene was placed. The trial femur was placed, the knee was reduced, and the knee was taken through a range of motion. The knee was stable in anterior, posterior, varus and valgus stress. The patella tracked anatomically without evidence of subluxation or dislocation. After trialing, the trial components were removed and the bony surfaces were thoroughly irrigated with saline. Following irrigation, the surfaces were dried and the final components were cemented into place. The excess cement was removed and the remaining cement was allowed to cure. The knee was again taken through a range of motion to confirm stability. The wound was then irrigated with saline and closure was performed using PDS to approximate the arthrotomy followed by closure of the subcutaneous tissues with a combination of running and interrupted Monocryl sutures. Sterile dressing was placed. The patient was awoken from anesthesia and taken to Recovery. POSTOPERATIVE INSTRUCTIONS: The patient will be weight-bearing as tolerated on postoperative day 1. COMPONENTS: Infoharmoni Triathlon knee, size 2 femur, size 2 tibia, 11 mm insert. #[id number] [facility]
== END 2017-04-22 17:08 | disposition home health service (06) | DRG 470 ==
LOC: AMB 05:47 → MS 10:20
PROVIDERS: ADMIT Orthopaedic Surgery; ATTEND Nurse Practitioner Family
PROC: 0SRC0J9 Replacement of Right Knee Joint with Synthetic Substitute, Cemented, Open Approach (ICD-10-PCS; principal; 2017-04-17 07:01)
DX: M17.11 Unilateral primary osteoarthritis, right knee (principal); E11.43 Type 2 diabetes mellitus with diabetic autonomic (poly)neuropathy; K31.84 Gastroparesis; E11.22 Type 2 diabetes mellitus with diabetic chronic kidney disease; I12.9 Hypertensive chronic kidney disease with stage 1 through stage 4 chronic kidney disease, or unspecified chronic kidney disease; N18.9 Chronic kidney disease, unspecified; G47.30 Sleep apnea, unspecified; K59.00 Constipation, unspecified; E66.9 Obesity, unspecified; E78.5 Hyperlipidemia, unspecified; Z79.84 Long term (current) use of oral hypoglycemic drugs; Z66 Do not resuscitate; Z86.73 Personal history of transient ischemic attack (TIA), and cerebral infarction without residual deficits; Z86.14 Personal history of Methicillin resistant Staphylococcus aureus infection; Z68.29 Body mass index [BMI] 29.0-29.9, adult; Z79.899 Other long term (current) drug therapy

== ENCOUNTER 2017-04-23 16:51 | Emergency (ER) | payer MEDICARE, OTHER ==
[2017-04-23 17:22] VITALS: TEMP 96.4
--- NOTE | 2017-04-23 17:24 | ED.PDOC ---
History of Present Illness - General Chief Complaint: GI Problem Stated Complaint: constipation Time Seen by Provider: 04/23/17 17:18 Source: patient, family Exam Limitations: no limitations - History of Present Illness Initial Comments: CONSTIPATION PT IS POD #6 S/P R TKA AT [facility]. DC'D HOME FROM [facility] YESTERDAY. NO BM SINCE SURGERY D/T NARCOTICS BUT IS PASSING FLATUS AND DENIES ABD PAIN. HOSP DID AXR YESTERDAY PRIOR TO DISCHARGE AND IT SHOWED FECES/CONSTIPATION AND GAS IN SMALL BOWEL BUT NO SIGNIFICANT AIR-FLUID LEVELS AND NO FREE AIR, WITH READ OF CONSTIPATION BUT NO BOWEL OBSTRUCTION. TODAY, [facility] NURSE EVALUATED FOR ADMISSION FOR REHABILITATION AND DUE TO NO BM, SHE WANTED PT CHECKED OUT AT ER PRIOR TO ADMISSION. PER PT AND FAMILY CARETAKERS, SHE HAS NOT STARTED MIRALAX, COLACE, OR ANY DAILY LAXATIVES YET. Severity: moderate Improving Factors: nothing Worsening Factors: nothing Associated Symptoms: denies symptoms Allergies/Adverse Reactions: Allergies NO KNOWN ALLERGY Allergy (Verified 04/23/17 17:23) Home Medications: Ambulatory Orders Atorvastatin Calcium [Lipitor] 10 mg PO HS 05/07/12 Calcium Citrate-Vitamin D [Jim-Citrate Plus Vitamin 250-100 mg-Unit] 1 tab PO BID 05/07/12 Cholecalciferol [Vitamin D3] 1,000 unit PO BEDTIME 04/11/17 Clobetasol Propionate 0.05 % EX YASIR-OTH-DAY 04/11/17 Miglitol [Glyset] 0.5 tablet PO DAILY 04/11/17 Miglitol [Glyset] 1.5 tablet PO DAILY@0700 04/11/17 glipiZIDE EXTENDED REL (XL) [Glucotrol XL] 0.5 tablet PO BIDAC 04/11/17 HYDROcodone 5MG/APAP 325MG [[place] 5/325] 1 ea PO Q4H PRN tab 04/22/17 Polyethylene Glycol 3350 [Miralax] 17 gm PO DAILY pckt 04/22/17 Rivaroxaban [Xarelto] 10 mg PO QD #7 tab 04/22/17 Docusate Sodium [Eq Stool Softener] 250 mg PO DAILY PRN #30 cap 04/23/17 Polyethylene Glycol 3350 [Miralax] 17 gm PO DAILY 04/23/17 Review of Systems - Review of Systems Constitutional: Denies: chills, fever EENTM: States: no symptoms reported Respiratory: States: no symptoms reported. Denies: cough, short of breath Cardiology: States: no symptoms reported. Denies: chest pain Gastrointestinal/Abdominal: States: constipation. Denies: abdominal pain, diarrhea, nausea, vomiting Genitourinary: States: no symptoms reported Musculoskeletal: States: other - APPROPRIATE R KNEE PAIN SINCE SURGERY. Skin: States: no symptoms reported Neurological: States: no symptoms reported Endocrine: States: no symptoms reported Hematologic/Lymphatic: States: no symptoms reported All other Systems: Reviewed and Negative Past Medical History (General) - Patient Medical History Hx Seizures: No Hx Stroke: No Hx Asthma: No Hx of COPD: No Hx Cardiac Disorders: No Hx Congestive Heart Failure: No Hx Pacemaker: No Hx Hypertension: No Hx Diabetes: Yes Hx Cancer: Yes - ovarian Hx MRSA: Yes - Eye,Face 2011;Nose 2012 MRSA Source:: Wound - Vaccination History Hx Tetanus, Diphtheria Vaccination: No - unknown Hx Influenza Vaccination: Yes - 2014 Hx Pneumococcal Vaccination: No - Social History Hx Tobacco Use: No Hx Alcohol Use: No Hx Substance Use: No Hx Physical Abuse: No Hx Emotional Abuse: No Family Medical History - Family History Mother Family History: Unknown Living Status: Hx Family Asthma: No Hx Family Congestive Heart Failure: Yes Hx Family Hypertension: No Hx Family Stroke: No Hx Cardiac Disease: No Hx Family Diabetes: Yes Hx Family Cancer: No Father Living Status: Hx Family Asthma: No Hx Family Congestive Heart Failure: Yes Hx Family Hypertension: No Hx Family Stroke: No Hx Cardiac Disease: No Hx Family Diabetes: No Hx Family Cancer: No Physical Exam - Physical Exam General Appearance: Alert, Comfortable Eye Exam: bilateral normal Ears, Nose, Throat: hearing grossly normal, normal ENT inspection Neck: full range of motion, supple Respiratory: chest non-tender, lungs clear, normal breath sounds, no respiratory distress Cardiovascular/Chest: normal peripheral pulses, regular rate, rhythm Peripheral Pulses: radial,right: 2+, radial,left: 2+ Gastrointestinal/Abdominal: normal bowel sounds, non tender, no organomegaly, no pulsatile mass, other - MILDLY DISTENDED BUT NTTP. TYMPANIC TO PERCUSSION. POS HYPERACTIVE BS. NO GUARDING OR REBOUND. Rectal Exam: deferred Back Exam: no CVA tenderness Extremity: normal range of motion, normal inspection - R TKA BANDAGE IS C/D/I. Neurologic: no motor/sensory deficits, alert, normal mood/affect Skin Exam: normal color, warm/dry Lymphatic: no adenopathy Progress - Results/Orders Results/Orders: BASELINE CR 2.03, NOW 2.7, AND HAVING POOR PO INTAKE POST-OPERATIVELY, THUS IS DEHYDRATED AND WILL GIVE BOLUS. UA PENDING. AXR = CONSTIPATION. THERE IS NO CONCERN FOR SBO PER XRAY NOR CLINICALLY - IS PASSING FLATUS, ABD NTTP. CON, HOSPITALIST CALLED AND INFORMED ME THEY WERE GIVING LAXATIVES IN HOSPITAL AND SHE HAD BM THE DAY OF DISCHARGE. GIVING ENEMA AND LAXATIVE TO PRODUCE BM. NIDDM - GLUCOSE 83 IN ER. HOSP IS OUT OF ENEMA AND GOLYTELY THUS CANCELED. WILL GIVE MIRALAX AND MAG CITRATE X 1. INSTRUCTED PT AND FAMILY TO TAKE HER DAILY LAXATIVES (MIRALAX) RX'D FROM HOSPITAL DISCHARGE. I AM ADDING COLACE TO THE DAILY MIRALAX. PT ELECTED TO WAIT ON TAKING THE MAG CITRATE UNTIL SHE GETS HOME BECAUSE SHE WAS AFRAID OF HAVING A BM ON THE DRIVE HOME ([address]), BUT SHE DID TAKE THE MIRALAX IN THE ER. Departure - Departure Clinical Impression: Constipation due to opioid therapy Disposition: Discharge to Home or Self Care Condition: Good Departure Forms: ED Discharge - Pt. Copy, Patient Portal Self Enrollment Instructions: DI for Constipation Diet: other - Eat a high fiber diet consisting of fruits and vegetables to help with the constipation. Activity: increase activity as tolerated Referrals: Reji Dye MD [Primary Care Provider] - 1-5 Days Prescriptions: Docusate Sodium [Eq Stool Softener] 250 mg PO DAILY PRN #30 cap PRN Reason: Constipation Home Medications: Ambulatory Orders Atorvastatin Calcium [Lipitor] 10 mg PO HS 05/07/12 Calcium Citrate-Vitamin D [Jim-Citrate Plus Vitamin 250-100 mg-Unit] 1 tab PO BID 05/07/12 Cholecalciferol [Vitamin D3] 1,000 unit PO BEDTIME 04/11/17 Clobetasol Propionate 0.05 % EX YASIR-OTH-DAY 04/11/17 Miglitol [Glyset] 0.5 tablet PO DAILY 04/11/17 Miglitol [Glyset] 1.5 tablet PO DAILY@0700 01/04/18 glipiZIDE EXTENDED REL (XL) [Glucotrol XL] 0.5 tablet PO BIDAC 04/11/17 HYDROcodone 5MG/APAP 325MG [[place] 5/325] 1 ea PO Q4H PRN tab 04/22/17 Polyethylene Glycol 3350 [Miralax] 17 gm PO DAILY pckt 04/22/17 Rivaroxaban [Xarelto] 10 mg PO QD #7 tab 04/22/17 Docusate Sodium [Eq Stool Softener] 250 mg PO DAILY PRN #30 cap 04/23/17 Polyethylene Glycol 3350 [Miralax] 17 gm PO DAILY 04/23/17
--- NOTE | 2017-04-23 18:33 | RAD ---
PROCEDURE: Abdomen Flat Upright Clinical History: TKA POST-OP CONSTIPATION Indication: Same as above Comparison: None Technique: Two views of the abdomen and pelvis were done. Findings: There is no gross evidence of free air in the abdomen or the pelvis . The small and large bowel gas pattern does not show any evidence of obstruction, ileus or bowel wall thickening. There is no visualization of radiopaque calculi in the outline of the urinary tract. The visualized lung bases are unremarkable . Small amount of retained fecal material is seen in the large bowel. Impression: Unremarkable bowel gas pattern Location of Interpretation: [id number] Electronically signed by: Maciej Cornelius MD 04/23/2017 6:32 PM [facility] Workstation: [id number]
[2017-04-23] MEDS ORDERED: SODIUM CHLORIDE 0.9% 1000ML 1,000 ML IVS ONE (18:41)
[2017-04-23] MEDS ORDERED: SODIUM PHOS/BIPHOS ENEMA ADULT 133 ML BTTL PR ONE (18:42)
[2017-04-23] MEDS ORDERED: PEG-ELECTROLYTE 4,000 ML BTTL PO ONE (18:43)
[2017-04-23] MEDS ORDERED: MAGNESIUM CITRATE 300 ML BTTL PO ONE (19:11)
[2017-04-23] MEDS ORDERED: POLYETHYLENE GLYCOL 3350 17 GM PCKT PO ONE (19:11)
[2017-04-23 20:30] VITALS: BP 130/78; O2SAT 94
== END 2017-04-23 20:52 | disposition home or self-care (01) ==
LOC: ER 16:51
DX: K59.03 Drug induced constipation (principal); T40.2X5A Adverse effect of other opioids, initial encounter; E11.9 Type 2 diabetes mellitus without complications; Y92.9 Unspecified place or not applicable; Z79.899 Other long term (current) drug therapy
CPT/HCPCS: 74019; 80053; J7030

== ENCOUNTER → 2017-10-16 | Outpatient (CLI) | payer MEDICARE, OTHER ==
--- NOTE | 2017-10-17 11:24 | MAM ---
EXAM DESCRIPTION: 3D Screening BILATERAL : Digital Mammography. CLINICAL HISTORY: 77 years Female SCREENING . No complaints. Mother with ovarian cancer. Remote family history of breast cancer. No childbirth. Postmenopausal. No HRT. COMPARISON: 2-D digital screening bilateral mammography 07/16/2016. Report from prior examination also reviewed. TECHNIQUE: Bilateral CC and MLO projection full-field images, 3-D tomosynthesis digital mammographic technique. CAD not utilized. FINDINGS: The breast parenchymal density pattern is: Heterogeneously dense breast tissue, which may obscure small masses. No skin thickening or nipple retraction. Bilateral solitary microcalcifications. Left axillary lymph node. Focal asymmetry in the posterior third of the right breast at the 930 clock position, approximately 7 cm from the nipple. This may represent an intramammary lymph node. No definite calcifications. No new focal, stellate mass or density, focal asymmetry , and no suspicious microcalcifications left breast. IMPRESSION: BI-RADS CATEGORY: 0 - INCOMPLETE- Need additional imaging evaluation. FOLLOW-UP: Recall for additional imaging: Bilateral 3-D tomosynthesis full field LM images. 2-D spot compression of the region of interest in the CC and LM projections. Follow-up targeted right breast ultrasound if indicated by diagnostic mammographic images.. Written communication concerning the IMPRESSION and Follow-up, will be mailed to the patient and referring health care provider. Electronically signed by: Enrique Avery MD 10/17/2017 11:23 AM CDT
== END ==
LOC: MAMMO 09:55
PROVIDERS: ATTEND Obstetrics & Gynecology
DX: Z12.31 Encounter for screening mammogram for malignant neoplasm of breast (principal); N18.4 Chronic kidney disease, stage 4 (severe)

== ENCOUNTER → 2017-10-30 | Outpatient (CLI) | payer MEDICARE, OTHER ==
--- NOTE | 2017-10-30 19:43 | US ---
EXAM DESCRIPTION: Breast,Right: Ultrasound CLINICAL HISTORY: 77 yearsFemaleABN MAMMO COMPARISON: Digital diagnostic mammogram right breast on this visit. TECHNIQUE: Transcutaneous scanning of the right breast utilizing quick-scale and Doppler modes. Scanning performed by the imaging center manager and Dr. Avery. FINDINGS: Scanning the upper outer quadrant of the middle third of the right breast with emphasis on the 1100 clock position. Heterogeneous echotexture in the tissues small lymph nodes are seen. No distinct solid mass or cyst. No parenchymal edema or large calcifications. No overlying skin changes. No abnormal vascularity. IMPRESSION: 1. Bi-Rads Category 2: Benign. 2. Please refer to digital 3-D diagnostic mammography of the right breast and report on this visit. The FINDINGS and the FOLLOW-UP plan were reviewed in person with the patient after the examination. Written communication explaining the IMPRESSION and FOLLOW-UP will be mailed to the patient and referring care provider. Electronically signed by: Enrique Avery MD 10/30/2017 7:42 PM CDT
--- NOTE | 2017-10-31 08:19 | MAM ---
EXAM DESCRIPTION: 3D Diagnostic, Right: Digital Mammography CLINICAL HISTORY: 77 yearsFemaleABN MAMMO focal asymmetry upper outer quadrant posterior third right breast.. COMPARISON: 3-D tomosynthesis bilateral screening mammography 10/16/2017.. Targeted right breast ultrasound following this examination. Reports from prior examinations also reviewed. TECHNIQUE: Right LM projection full-field images, 3-D tomosynthesis digital mammographic technique. Right. 2-D spot magnification. 2-D Spot compression upper outer quadrant posterior CC and LM projections. CAD not utilized. FINDINGS: The breast parenchymal density pattern is: Heterogeneously dense breast tissue, which may obscure small masses. No skin thickening or nipple retraction scattered solitary microcalcifications. No mass or focal asymmetry in the region of interest with special digital diagnostic images. Ultrasound: Scanning the upper outer quadrant of the middle third of the right breast with emphasis on the 1100 clock position, 6 cm from the nipple. Heterogeneous echotexture in the tissues small lymph nodes are seen. No distinct solid mass or cyst. No parenchymal edema or large calcifications. No overlying skin changes. No abnormal vascularity. IMPRESSION: BI-RADS CATEGORY: 2 - BENIGN FINDINGS. FOLLOW UP: Return to routine digital bilateral screening, one year interval from October 2017. Written communication explaining the IMPRESSION and follow-up, will be mailed to the patient and referring health care provider. According to the [employer], yearly mammograms are recommended starting at age 40 and continuing as long as a woman is in good health. Any breast change noted on a breast self-exam should be reported promptly to the patient's healthcare provider. Breast MRI is recommended for women with an approximately 20-25% or greater lifetime risk of breast cancer, including women with a strong family history of breast or ovarian cancer and women who have been treated for Hodgkin's disease. A negative mammographic report should not delay tissue diagnosis in patients with significant clinical history or physical findings. Extremely dense breast tissue limits the sensitivity of digital mammography. Electronically signed by: Enrique Avery MD 10/31/2017 8:18 AM CDT
== END ==
LOC: US 09:00
PROVIDERS: ATTEND Obstetrics & Gynecology
DX: R92.8 Other abnormal and inconclusive findings on diagnostic imaging of breast (principal)
CPT/HCPCS: 76641; 77065; G0279

== ENCOUNTER → 2018-02-12 | Outpatient (CLI) | payer MEDICARE, OTHER | LOC: LAB.O 15:33 | PROVIDERS: ATTEND Internal Medicine Nephrology | DX: N18.3 Chronic kidney disease, stage 3 (moderate) (principal) ==

== ENCOUNTER → 2018-05-27 | Outpatient (CLI) | payer MEDICARE, OTHER | LOC: LAB.O 13:27 | PROVIDERS: ATTEND Internal Medicine Nephrology | DX: N18.3 Chronic kidney disease, stage 3 (moderate) (principal) ==

== ENCOUNTER → 2018-09-15 | Outpatient (CLI) | payer MEDICARE, OTHER | LOC: LAB.O 09:16 | PROVIDERS: ATTEND Internal Medicine Nephrology | DX: N18.3 Chronic kidney disease, stage 3 (moderate) (principal) ==

== ENCOUNTER → 2018-11-12 | Outpatient (CLI) | payer MEDICARE, OTHER ==
--- NOTE | 2018-11-14 16:57 | MAM ---
EXAM DESCRIPTION: 3D Screening BILATERAL : Digital Mammography. CLINICAL HISTORY: 78 years Female Screening no complaints. No personal history of breast cancer. Remote family history of breast cancer in mother with ovarian cancer. Childbirth. Postmenopausal. No HRT. Lifetime risk of developing breast cancer (Tyrer-Cuzick model)(%): 2.6. COMPARISON: Bilateral screening digital breast tomosynthesis 10/16/2017. Right breast diagnostic digital tomosynthesis with targeted ultrasound 10/30/2017. TECHNIQUE: Bilateral CC and MLO projection full-field images, digital tomosynthesis mammographic technique. Bilateral digital 2-D full-field MLO images. CAD not available for tomosynthesis or 2-D images. FINDINGS: The breast parenchymal density pattern is: Heterogeneously dense breast tissue, which may obscure small masses. No skin thickening or nipple retraction. Bilateral solitary microcalcifications. Mostly distributed throughout the dense fibroglandular tissues bilaterally. Left axillary lymph nodes. No new focal, stellate mass or density, focal asymmetry , and no suspicious microcalcifications bilaterally. Stable mammograms compared to prior study. IMPRESSION: Benign exam. BIRAD CATEGORY: 2 BENIGN FINDINGS. RECOMMENDATIONS: FOLLOW UP: Routine digital bilateral mammographic screening, one year interval from November 2018. Written communication explaining the IMPRESSION and follow-up, will be mailed to the patient and referring health care provider. According to the [employer], yearly mammograms are recommended starting at age 40 and continuing as long as a woman is in good health. Any breast change noted on a breast self-exam should be reported promptly to the patient's healthcare provider. Breast MRI is recommended for women with an approximately 20-25% or greater lifetime risk of breast cancer, including women with a strong family history of breast or ovarian cancer and women who have been treated for Hodgkin's disease. A negative mammographic report should not delay tissue diagnosis in patients with significant clinical history or physical findings. Extremely dense breast tissue limits the sensitivity of digital mammography. Electronically signed by: Enrique Avery MD 11/14/2018 4:55 PM CDT
== END ==
LOC: MAMMO 11:00
PROVIDERS: ATTEND Obstetrics & Gynecology
DX: Z12.31 Encounter for screening mammogram for malignant neoplasm of breast (principal)

== ENCOUNTER → 2019-02-09 | Outpatient (CLI) | payer MEDICARE, OTHER | LOC: LAB.O 13:57 | PROVIDERS: ATTEND Internal Medicine Nephrology | DX: N18.4 Chronic kidney disease, stage 4 (severe) (principal) ==

== ENCOUNTER → 2019-09-23 | Outpatient (CLI) | payer OTHER, MEDICARE | LOC: LAB.O 15:33 | PROVIDERS: ATTEND Internal Medicine Nephrology | DX: N18.4 Chronic kidney disease, stage 4 (severe) (principal) ==

== ENCOUNTER → 2019-11-18 | Outpatient (CLI) | payer OTHER ==
--- NOTE | 2019-11-19 20:00 | MAM ---
EXAM DESCRIPTION: 3D Screening BILATERAL : Digital Mammography. CLINICAL HISTORY: 79 years Female ANNUAL SCREENING . No complaints. Mother with ovarian cancer. Remote family history of breast cancer. Menarche age 12. Ectopic unknown age. Postmenopausal unknown age. No HRT. Lifetime risk of developing breast cancer (Tyrer-Cuzick model)(%): 2.6. COMPARISON: Bilateral screening digital breast tomosynthesis November 2018 and October 2017 with diagnostic digital breast tomosynthesis October 2017.. TECHNIQUE: Bilateral CC and MLO projection full-field images, digital tomosynthesis mammographic technique. Bilateral digital 2-D full-field MLO images. CAD available for 2-D images. FINDINGS: The breast parenchymal density pattern is: Heterogeneously dense breast tissue, which may obscure small masses. No skin thickening or nipple retraction. Bilateral skin mole markers. Bilateral solitary microcalcifications. Dense fibroglandular tissue predominantly central breast with central axis of the posterior nipple line. No new focal, stellate mass or density, focal asymmetry , and no suspicious microcalcifications bilaterally. Stable mammograms compared to prior study. IMPRESSION: Benign exam. BIRAD CATEGORY: 2 BENIGN FINDINGS. RECOMMENDATIONS: FOLLOW UP: Routine digital bilateral mammographic screening, one year interval from November 2019. Written communication explaining the IMPRESSION and follow-up, will be mailed to the patient and referring health care provider. According to the [employer], yearly mammograms are recommended starting at age 40 and continuing as long as a woman is in good health. Any breast change noted on a breast self-exam should be reported promptly to the patient's healthcare provider. Breast MRI is recommended for women with an approximately 20-25% or greater lifetime risk of breast cancer, including women with a strong family history of breast or ovarian cancer and women who have been treated for Hodgkin's disease. A negative mammographic report should not delay tissue diagnosis in patients with significant clinical history or physical findings. Extremely dense breast tissue limits the sensitivity of digital mammography. Electronically signed by: Enrique Avery MD 11/19/2019 7:59 PM CDT
== END ==
LOC: MAMMO 14:37
PROVIDERS: ATTEND Obstetrics & Gynecology
DX: Z12.31 Encounter for screening mammogram for malignant neoplasm of breast (principal)

== ENCOUNTER → 2020-01-13 | Outpatient (CLI) | payer OTHER | LOC: LAB.O 10:22 | PROVIDERS: ATTEND Internal Medicine Nephrology | DX: N18.4 Chronic kidney disease, stage 4 (severe) (principal) ==

== ENCOUNTER → 2020-05-16 | Outpatient (CLI) | payer OTHER | LOC: LAB.O 15:24 | PROVIDERS: ATTEND Internal Medicine Nephrology | DX: N18.30 Chronic kidney disease, stage 3 unspecified (principal) ==